=== PATIENT | female | born 1960 ===

== ENCOUNTER → 2018-12-30 10:48 | Outpatient (CLI) | payer OTHER, SELFPAY ==
[2018-12-30 12:15] LABS: BUN Creatinine Ratio 18.9 (6-22); Blood Urea Nitrogen 17 mg/dL (7-17); Calcium 9.4 mg/dL (8.4-10.2); Carbon Dioxide 29 mmol/L (22-32); Chloride 102 mmol/L (98-107); Estimated Glomerular Filt Rate > 60.0 mL/min (>60); Glucose 98 mg/dL (80-110); HEMOLYSIS < 15 (0-50); Potassium 3.6 mmol/L (3.4-5.1); Sodium 140 mmol/L (137-145)
== END ==
PROVIDERS: Visit Provider Student in an Organized Health Care Education/Training Program
DX: I10 Essential (primary) hypertension (principal)
CPT/HCPCS: 36415; 80048

== ENCOUNTER → 2019-04-24 15:11 | Outpatient (CLI) | payer OTHER, SELFPAY ==
--- NOTE | 2019-04-24 | DI.MG.S_ITS ---
BILATERAL DIGITAL SCREENING MAMMOGRAM 3D/2D WITH CAD: 04/24/2019 CLINICAL: Routine screening. Family history of breast cancer. Comparison is made to exams dated: 12/31/2016 mammogram, 11/23/2013 mammogram, 03/06/2011 mammogram, and 08/08/2008 mammogram - [facility]. The tissue of both breasts is heterogeneously dense. This may lower the sensitivity of mammography. Current study was also evaluated with a Computer Aided Detection (CAD) system. There are mole markers on both breasts. No significant masses, calcifications, or other findings are seen in either breast. There has been no significant interval change. IMPRESSION: NEGATIVE There is no mammographic evidence of malignancy. A 1 year screening mammogram is recommended. This exam was interpreted at Station ID: [id number]. NOTE: For mammograms, a report in lay terms will be sent to the patient. Approximately 15% of breast malignancies will not be visualized mammographically. In the management of a palpable breast mass, a negative mammogram must not discourage biopsy of a clinically suspicious lesion. Electronically Signed By: Lorenzo ryder/sofia:04/24/2019 18:33:26 letter sent: Normal Exam ACR BI-RADS Category 1: Negative 3341F
== END ==
PROVIDERS: PCP Family Medicine; Visit Provider Family Medicine
DX: Z12.31 Encounter for screening mammogram for malignant neoplasm of breast (principal); Z80.3 Family history of malignant neoplasm of breast
CPT/HCPCS: 77063; 77067

== ENCOUNTER → 2020-11-11 10:22 | Outpatient (CLI) | payer OTHER, SELFPAY ==
[2020-11-11 11:05] LABS: COVID19 -Nasal RAPID Negative (Negative)
== END ==
PROVIDERS: PCP Family Medicine; Visit Provider Specialist
DX: Z20.822 Contact with and (suspected) exposure to COVID-19 (principal)
CPT/HCPCS: 87635; C9803

== ENCOUNTER 2020-11-12 07:32 | Day surgery (SDC) | payer OTHER, SELFPAY ==
[2020-11-12] VITALS (8 sets, daily range): BP systolic 95–125; BP diastolic 43–69; PULSE 56–67; RESP 10–18; TEMP 36.2–36.7; O2SAT 92–98
--- NOTE | 2020-11-12 | PATH_ITS ---
[facility] Accession Number: [id number] . 01 Material submitted: . PART A: colon - 30CM COLON POLYP PART B: colon - 15CM COLON POLYP X2 PART C: anal canal - ANAL VERGE POLYP . 01 Clinical history: . SDC . 02 Diagnosis: A. Colon Polyp at 30 cm, Biopsy: Tubular adenoma. Additional step sections examined. . B. Colon Polyps at 15 cm, Biopsies: Fragments of tubular adenoma and fragments of hyperplastic polyp (two polyps removed). . C. Anal Verge Polyp, Biopsy: Tubular adenoma. MRV 11/15/2020 1038 Local . 02 Electronically signed: . Ernie Clay MD, PhD, Pathologist NPI- [id number] . 01 Gross description: . Part A: 30CM COLON POLYP: Received in formalin are multiple fragment(s) of velasquez, soft tissue measuring 0.1 x 0.1 x 0.1 cm to 0.4 x 0.3 x 0.2 cm submitted entirely in 1 cassette(s) Part B: 15CM COLON POLYP X2: Received in formalin are multiple fragment(s) of velasquez, soft tissue measuring 0.1 x 0.1 x 0.1 cm to 0.3 x 0.2 x 0.2 cm submitted entirely in 1 cassette(s) Part C: ANAL VERGE POLYP: Received in formalin is 1 fragment(s) of velasquez, soft tissue measuring 0.3 x 0.3 x 0.3 cm submitted entirely in 1 cassette(s) /JUSTIN 11/13/2020 0032 Local . 02 Pathologist provided ICD-10: D12.6, D12.8 . 02 CPT . 732595, 433109, [id number] Performed at: 01 [facility] [address] [id number] MD Daniele Manzano MD Phone: [phone] Performed at: 02 [facility] [address] [place] [id number] MD Shawna Bang MD Phone: [phone]
[2020-11-12] MEDS: LACTATED RINGERS 1,000 ML 200 ML IV (08:10)
--- NOTE | 2020-11-12 09:03 | PM.HP.1 ---
History of Present Illness History of Present Illness Date Patient Seen: 11/12/20 Time Patient Seen: 09:03 Chief complaint: SDC Narrative: The patient is a woman here for screening colonoscopy. Last exam was over 10 years ago. Patient History Medical History (Updated 11/12/20 @ 09:04 by Madhu Rankin MD) Essential hypertension (01/31/13) Essential tremor (09/24/14) No significant medical problems Surgical History Status post colonoscopy Family & Social History Family History Brother Heart disease Hypertension High cholesterol Father Diabetes mellitus Hypertension High cholesterol Mother Dementia Cancer Diabetes mellitus Hypertension High cholesterol Osteoporosis Sister Thyroid disease Social History: household members spouse Tobacco & Substance use: Smoking Status Former smoker alcohol intake never Substance Use Type does not use Meds Home Medications and Allergies Home Medications Medication Instructions Recorded Confirmed Type atorvastatin [Lipitor] 20 mg PO HS #90 tab 01/28/17 11/12/20 Rx cholecalciferol (vitamin D3) 2,000 unit PO QDAY #0 01/28/17 11/12/20 History [Vitamin D3] propranolol 80 mg tablet 80 mg PO BID #90 tab 02/07/19 11/12/20 Rx aspirin [Aspir-81] 81 mg PO DAILY 11/12/20 11/12/20 History hydrochlorothiazide 12.5 mg PO DAILY 11/12/20 11/12/20 History lisinopril 20 mg PO DAILY 11/12/20 11/12/20 History Allergies Allergy/AdvReac Type Severity Reaction Status Date / Time Sulfa (Sulfonamide Allergy Unknown Verified 11/12/20 08:12 Antibiotics) [SULFA (SULFONAMIDE ANTIBIOTICS)] Review of Systems Review of Systems Narrative: Wears glasses. Has arthritis and hypertension. Has essential tremor. Uses propanolol for her hypertension and essential tremor ROS: Yes All systems reviewed with the patient and are negative except as otherwise documented Exam Vital Signs (past 8 hours): - 11/12/20 07:54 Temperature 97.1 F L Pulse Rate 67 Respiratory Rate 18 Blood Pressure 125/66 Pulse Oximetry 98 Oxygen Delivery Method Room Air Narrative Exam Narrative: Pleasant cooperative patient no apparent distress. Lungs are clear to auscultation. No rales or rhonchi. Heart regular rate and rhythm no murmur gallop. Abdomen is soft nontender without mass. No obvious hernias. Patient is alert and oriented x3. Assessment & Plan Assessment & Plan narrative: The patient for a screening colonoscopy. I have discussed the procedure with them. Risks of bleeding, perforation which would necessitate major operation, failure to find remove all lesions, the potential tattoo were all discussed. All questions were answered. They wished to proceed.
[2020-11-12] MEDS: SCOPOLAMINE 1 PATCH TOP (09:05)
--- NOTE | 2020-11-12 09:05 | PM.PREOP ---
Pre-operative Note COVID-19 COVID-19 status: Negative Result date/Date tested (Pos, Neg/Pending): 11/11/20 Interval Note History & Physical reviewed/Exam performed by Physician: Yes Changes to H&P: No ASA Class (for procedural sedation): II
[2020-11-12] MEDS: ONDANSETRON 4 MG/2 ML INJ IV (09:06)
--- NOTE | 2020-11-12 09:10 | SUR.PREOP ---
Dr. Rankin made aware of pt's hx of post op nausea, medicated with scopalamine patch.
[2020-11-12] MEDS: fentaNYL 250 MCG/5 ML INJ IV (09:11)
[2020-11-12] MEDS: MIDAZOLAM 5 MG/5 ML VIAL IV (09:11)
--- NOTE | 2020-11-12 09:35 | PM.OP.ENDO ---
Operative Date/Time/Diagnoses Date of procedure: 11/12/20 Time of procedure: 09:35 Pre-op diagnosis: Screening examination. Last exam over 10 years ago. Post-op diagnosis: same (Small polyps. Pancolonic diverticulosis) Procedure & Clinicians Study performed: Colonoscopy with cold biopsy Same procedure as scheduled: Yes Indications: Screening Surgeon: Madhu Rankin Procedure Notes SCOAP/Timeout: Performed Procedure in detail: The patient was placed in the left lateral decubitus position and underwent IV sedation directed by the surgeon consisting of fentanyl and Versed. Digital exam was unremarkable. The scope was inserted and advanced through the rectum into the sigmoid, descending, transverse, and ascending colon. Patient was noted to have diverticulosis scattered through the colon.. The cecum was reached identified by the ileocecal valve and the appendiceal opening. . The scope was gradually brought out. A single polyp was found at 30 cm from the anal verge and this was biopsied and removed. Two polyps were found at 15 cm from the anal verge in these were biopsied and removed. Finally there was a small polyp near the anal verge which I biopsied and removed. The scope ultimately was retroflexed in the rectum. The appearance was normal except for some minor hemorrhoidal disease.. The scope was removed and the patient tolerated the procedure well. The prep was very good. Scope withdrawal time: 7 minutes(12 total) Sedation minutes: 22 Findings: diverticulosis (Pancolonic) and polyp (4small polyps) Specimen(s): other (Polyps) Complications: none Post-procedure Recommendations: Colonscopy in 5 years, High fiber diet and Start medication(s) (Metamucil) Follow up: as needed Disposition: PACU
--- NOTE | 2020-11-12 12:28 | SUR.PHASEII ---
Late entry: 1030 pt ready to go, attempted to get dressed, pt dressed started to dry heave and vomited, pt placed back in bed. Rested, 2nd attempt to get dressed pt did so w/o any nausea and vomiting. Pt eventually left unit in stable condition.
== END 2020-11-12 11:00 | disposition home or self-care (01) ==
PROVIDERS: PCP Family Medicine; Referring Provider Specialist; Visit Provider Specialist
PROC: 0DJD8ZZ Inspection of Lower Intestinal Tract, Via Natural or Artificial Opening Endoscopic (ICD-10-PCS; CPT 45378; principal; 2020-11-12 08:30)
DX: Z12.11 Encounter for screening for malignant neoplasm of colon (principal); I10 Essential (primary) hypertension; G25.0 Essential tremor; K57.30 Diverticulosis of large intestine without perforation or abscess without bleeding; D12.6 Benign neoplasm of colon, unspecified; D12.8 Benign neoplasm of rectum
CPT/HCPCS: 45380; 99152; J2250; J2405; J3010

== ENCOUNTER → 2022-09-09 10:19 | Outpatient (CLI) | payer OTHER, SELFPAY ==
--- NOTE | 2022-09-09 | DI.MG.S_ITS ---
BILATERAL DIGITAL SCREENING MAMMOGRAM 3D/2D WITH CAD: 09/09/2022 CLINICAL: Routine screening. Family history of breast cancer. Comparison is made to exams dated: 04/24/2019 mammogram, 12/31/2016 mammogram, and 11/23/2013 mammogram - [facility]. Both breasts are heterogeneously dense, which may obscure small masses (category c / 51-75% glandular tissue). Current study was also evaluated with a Computer Aided Detection (CAD) system. There are mole markers on both breasts. No significant masses, calcifications, or other findings are seen in either breast. There has been no significant interval change. IMPRESSION: NEGATIVE There is no mammographic evidence of malignancy. A 1 year screening mammogram is recommended. Based on the Tyrer Cuzick model (a risk assessment model) the patient's lifetime risk is 7.7% and her 10 year risk is 3.6%. According to the ACR, ACS, and NCCN guidelines, an annual breast MRI exam along with mammogram is recommended if the patient's lifetime risk is 20% or greater. This exam was interpreted at Station ID: [id number]. NOTE: For mammograms, a report in lay terms will be sent to the patient. Approximately 15% of breast malignancies will not be visualized mammographically. In the management of a palpable breast mass, a negative mammogram must not discourage biopsy of a clinically suspicious lesion. Electronically Signed By: Jaziel neal/sofia:09/09/2022 14:36:58 letter sent: Normal Exam ACR BI-RADS Category 1: Negative 3341F
== END ==
PROVIDERS: PCP Family Medicine; Referring Provider Family Medicine; Visit Provider Family Medicine
DX: Z12.31 Encounter for screening mammogram for malignant neoplasm of breast (principal); Z80.3 Family history of malignant neoplasm of breast
CPT/HCPCS: 77063; 77067

== ENCOUNTER → 2023-10-27 15:26 | Outpatient (CLI) | payer MEDICARE, OTHER, SELFPAY ==
--- NOTE | 2023-10-27 | DI.MG.S_ITS ---
BILATERAL DIGITAL SCREENING MAMMOGRAM 3D/2D WITH CAD: 10/27/2023 CLINICAL: Routine screening. Family history of breast cancer. Comparison is made to exams dated: 09/09/2022 mammogram, 04/24/2019 mammogram, and 12/31/2016 mammogram - [facility]. Both breasts are heterogeneously dense, which may obscure small masses (category c / 51-75% glandular tissue). Current study was also evaluated with a Computer Aided Detection (CAD) system. There are mole markers on both breasts. No significant masses, calcifications, or other findings are seen in either breast. There has been no significant interval change. IMPRESSION: BENIGN There is no mammographic evidence of malignancy. A 1 year screening mammogram is recommended. Based on the Tyrer Cuzick model (a risk assessment model) the patient's lifetime risk is 7.4% and her 10 year risk is 3.6%. According to the ACR, ACS, and NCCN guidelines, an annual breast MRI exam along with mammogram is recommended if the patient's lifetime risk is 20% or greater. This exam was interpreted at Station ID: [id number]. NOTE: For mammograms, a report in lay terms will be sent to the patient. Approximately 15% of breast malignancies will not be visualized mammographically. In the management of a palpable breast mass, a negative mammogram must not discourage biopsy of a clinically suspicious lesion. Electronically Signed By: Markel martinez/sofia:10/28/2023 16:19:31 letter sent: Normal Exam ACR BI-RADS Category 2: Benign Finding(s) 3342F
== END ==
PROVIDERS: PCP Student in an Organized Health Care Education/Training Program; Referring Provider Student in an Organized Health Care Education/Training Program; Visit Provider Student in an Organized Health Care Education/Training Program
DX: Z12.31 Encounter for screening mammogram for malignant neoplasm of breast (principal); Z80.3 Family history of malignant neoplasm of breast; R92.333 Mammographic heterogeneous density, bilateral breasts
CPT/HCPCS: 77063; 77067

== ENCOUNTER 2024-10-03 09:19 | Emergency (ER) | payer MEDICARE, OTHER, SELFPAY ==
[2024-10-03] VITALS (21 sets, daily range): BP systolic 118–153; BP diastolic 56–74; PULSE 59–76; RESP 14; TEMP 36.9; O2SAT 92–98; BMI 32.2
--- NOTE | 2024-10-03 09:36 | EKG_ITS ---
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
--- NOTE | 2024-10-03 09:36 | DI.CT.S_ITS ---
PROCEDURE: CT HEAD/BRAIN WO CON INDICATIONS: Confusion TECHNIQUE: Noncontrast 4.5 mm thick angled axial sections acquired from the foramen magnum to the vertex, with coronal and sagittal reformats. For radiation dose reduction, the following was used: automated exposure control, adjustment of mA and/or kV according to patient size. COMPARISON: None. FINDINGS: Image quality: Diagnostic. CSF spaces: Basal cisterns are patent. No extra-axial fluid collections. The ventricles are symmetric in size and shape. Brain: No intracranial bleeds or masses. There is cerebral volume loss for age, with resultant ventricular and sulcal prominence. There are periventricular and deep white matter chronic small vessel ischemic changes. There is intracranial internal carotid artery atherosclerosis. Skull and face: Calvarium and visualized facial bones appear intact, without suspicious lesions. Sinuses: Visualized sinuses and mastoids are clear. IMPRESSION: No acute intracranial pathology. Dictated by: Willy Rao M.D. on 10/03/2024 at 9:55 Approved by: Willy Rao M.D. on 10/03/2024 at 9:57
--- NOTE | 2024-10-03 09:36 | DI.MRI.S_ITS ---
PROCEDURE: MR HEAD/BRAIN WO CON INDICATIONS: Confusion TECHNIQUE: Non-contrast axial T1 spin echo, axial T2 fast spin echo, sagittal and axial FLAIR, coronal T2 fast spin echo, axial gradient echo, axial diffusion and ADC through the brain. COMPARISON: [facility], CT, CT HEAD/BRAIN WO CON, 10/03/2024, 9:40. FINDINGS: Image quality: Diagnostic. CSF spaces: Ventricles appear symmetric in size and shape. Basal cisterns are patent. No extra-axial fluid collections. Brain: No intracranial bleeds or mass effects. There is cerebral volume loss for age. There are periventricular and deep white matter chronic small vessel ischemic changes. Brainstem appears normal. Diffusion-weighted images show no acute infarct. No chronic ischemic insults. Normal intravascular flow voids are present. Skull and face: Calvarial bone marrow is normal in signal. Orbits are normal. Sinuses: Sinuses and mastoids are clear. IMPRESSION: MRI brain without acute intracranial abnormalities. No evidence for acute infarction. No evidence for mass or mass effect. Dictated by: Derek Zabala M.D. on 10/03/2024 at 15:23 Approved by: Derek Zabala M.D. on 10/03/2024 at 15:25
--- NOTE | 2024-10-03 09:38 | ED.NEUROSD ---
HPI - Neuro Symptoms/Deficit General Chief Complaint: Neuro Symptoms/Deficit Stated Complaint: memory loss t-1 Time Seen by Provider: 10/03/24 09:28 Source: patient Mode of arrival: Ambulatory History of Present Illness HPI Narrative: Patient here with . Complains of amnesia forgetfulness that occurred yesterday. Awoke this morning and symptoms have resolved. Last well known 9:30 a.m. yesterday. was with patient and he left for short while. He did return and through the course of day he had not noticed anything odd or different. However around 4:44 p.m. patient had asked about some items in the house which were placed 3 days ago and she thought was placed there recently. On further questioning of patient by , he noticed that she could not recall any events, any events of the day. Could not remember what she ate for breakfast which she did in the morning or afternoon. He drove her to the ER in 2 different places but they were too busy and they did not register in. During their travel patient kept on asking where they were going and where they were. Patient does not recall any of these events. They went to bed last night and patient started slowly improving with memory. She awoke this morning without any complaints and able to recall short and long-term events accept per yesterday's events. No prior history of heart attack strokes or diabetes. Denies any headache chest pain numbness tingling weakness. Fast exam is negative. t denies any drug or alcohol abuse. No fall or injury. No history of seizures. On Anticoagulants: No Related Data Home Medications Medication Instructions Recorded Confirmed cholecalciferol (vitamin D3) 50 2,000 unit PO QDAY ##0 01/28/17 11/12/20 mcg (2,000 unit) tablet (Vitamin D3) aspirin 81 mg tablet,delayed 81 mg PO DAILY 11/12/20 11/12/20 release hydrochlorothiazide 12.5 mg tablet 12.5 mg PO DAILY 11/12/20 11/12/20 lisinopril 20 mg tablet 20 mg PO DAILY 11/12/20 11/12/20 Previous Rx's Medication Instructions Recorded atorvastatin 20 mg tablet (Lipitor) 20 mg PO HS #90 tabs 01/28/17 propranolol 80 mg tablet 80 mg PO BID #90 tabs 02/07/19 Allergies Allergy/AdvReac Type Severity Reaction Status Date / Time Sulfa (Sulfonamide Allergy Unknown Verified 10/03/24 09:26 Antibiotics) [SULFA (SULFONAMIDE ANTIBIOTICS)] Review of Systems Review of Systems Narrative: GENERAL: Negative chills, fatigue, malaise, fever, sweats. HEENT: Negative sinus pain, ear pain, sore throat RESPIRATORY: Negative dyspnea, cough CARDIOVASCULAR: Negative chest pain, palpitations GASTROINTESTINAL: Negative nausea, vomiting, abdominal pain : Negative dysuria, frequency, hematuria MUSCULOSKELETAL: Negative muscle or bony pain SKIN: Negative rash, skin lesions NEUROLOGIC: Negative weakness, numbness, positive amnesia, negative headache negative seizure ROS Unobtainable: All systems reviewed & are unremarkable except as noted in HPI and below Hematologic/Lymphatic On Anticoagulants: No Patient History Medical History (Updated 10/03/24 @ 16:04 by Ziggy Bae MD) No significant medical problems Essential tremor (09/24/14) Essential hypertension (01/31/13) Surgical History Status post colonoscopy Family History Brother Heart disease Hypertension High cholesterol Father Diabetes mellitus Hypertension High cholesterol Mother Dementia Cancer Diabetes mellitus Hypertension High cholesterol Osteoporosis Sister Thyroid disease Social History household members: spouse Smoking Status: Former smoker alcohol intake: never Smoking Status: Former smoker alcohol intake frequency: other Exam Narrative Exam Narrative: GENERAL: in no distress, not toxic not dyspneic HEAD: Normocephalic. EYES: Pupils equal round ENT: Mucous membranes moist. NECK: Trachea midline. CARDIOVASCULAR: Regular rate and rhythm RESPIRATORY: Clear to auscultation. Breath sounds equal bilaterally. No wheezes, rales, or rhonchi. GASTROINTESTINAL: Abdomen soft, non-tender EXTREMITIES: No gross deformities. BACK: No flank tenderness. NEURO: AOx4. Fast exam is negative. 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 Negative pronator drift. [id number] intact lift each leg off bed without drift. Able to recall 3 items SKIN: Warm and dry PSYCH: Not anxious, is cooperative Initial Vital Signs Initial Vital Signs: Vital Signs Temperature 98.5 F 10/03/24 09:20 Pulse Rate 76 10/03/24 09:20 Respiratory Rate 14 10/03/24 09:20 Blood Pressure 138/64 10/03/24 09:20 Pulse Oximetry 97 10/03/24 09:20 Oxygen Delivery Method Room Air 10/03/24 09:20 Course Orders Ordered: ED Orders 10/03/24 09:30 Complete Blood Count AUTO DIFF Stat Comprehensive Metabolic Panel Stat Troponin & CK Cardiac Panel Stat 10/03/24 09:36 CT head/brain wo con Stat MR head/brain wo con Stat EKG-12 Lead Stat 10/03/24 09:37 EC echo doppler complete Stat 10/03/24 09:46 CT angio head and neck Stat 10/03/24 09:55 Urinalysis and Microscopic Stat Vital Signs Vital signs: Vital Signs - 8 hr 10/03/24 09:20 10/03/24 09:23 10/03/24 09:24 Temperature 98.5 F Pulse Rate 76 Respiratory Rate 14 Blood Pressure 138/64 138/64 Pulse Oximetry 97 92 Oxygen Delivery Method Room Air 10/03/24 09:24 10/03/24 09:30 10/03/24 09:31 Temperature Pulse Rate 73 70 Respiratory Rate Blood Pressure 149/74 H Pulse Oximetry 95 97 Oxygen Delivery Method 10/03/24 09:31 10/03/24 09:59 10/03/24 09:59 Temperature Pulse Rate 67 74 Respiratory Rate Blood Pressure 153/68 H Pulse Oximetry 97 96 Oxygen Delivery Method 10/03/24 10:00 10/03/24 10:00 10/03/24 10:30 Temperature Pulse Rate 72 Respiratory Rate Blood Pressure 149/66 H 141/64 H Pulse Oximetry 97 Oxygen Delivery Method 10/03/24 10:30 10/03/24 11:00 10/03/24 11:01 Temperature Pulse Rate 59 L 62 Respiratory Rate Blood Pressure 122/67 Pulse Oximetry 97 97 Oxygen Delivery Method 10/03/24 11:01 10/03/24 11:30 10/03/24 11:30 Temperature Pulse Rate 61 61 Respiratory Rate Blood Pressure 128/60 Pulse Oximetry 96 98 Oxygen Delivery Method 10/03/24 12:00 10/03/24 12:00 10/03/24 12:30 Temperature Pulse Rate 75 Respiratory Rate Blood Pressure 136/64 119/57 L Pulse Oximetry 96 Oxygen Delivery Method 10/03/24 12:30 10/03/24 13:00 10/03/24 13:01 Temperature Pulse Rate 71 66 66 Respiratory Rate Blood Pressure Pulse Oximetry 97 98 97 Oxygen Delivery Method 10/03/24 13:01 10/03/24 13:30 10/03/24 13:30 Temperature Pulse Rate 66 Respiratory Rate Blood Pressure 118/56 L 121/59 L Pulse Oximetry 96 Oxygen Delivery Method 10/03/24 14:02 10/03/24 15:17 10/03/24 15:18 Temperature Pulse Rate 67 64 Respiratory Rate Blood Pressure 132/62 Pulse Oximetry 98 96 Oxygen Delivery Method 10/03/24 15:18 10/03/24 15:30 10/03/24 15:30 Temperature Pulse Rate 64 69 Respiratory Rate Blood Pressure 122/64 Pulse Oximetry 95 96 Oxygen Delivery Method MDM - Neuro Symptoms/Deficit Lab Data 10/03/24 09:30 10/03/24 09:30 Labs: Lab Results 10/03/24 10/03/24 Range/Units 09:30 09:55 WBC 8.4 (4.5-11.0) X10^3/uL RBC 4.82 (4.0-5.2) X10^6/uL Hgb 15.1 (12.0-16.0) g/dL Hct 45.1 (36-46) % MCV 93.4 (80-100) fL MCH 31.2 (26-34) PG MCHC 33.4 (30-36) % RDW 13.1 (11.6-14.8) % Plt Count 287 (150-400) X10^3/uL Neut % (Auto) 62.7 (50-75) % Lymph % (Auto) 24.3 L (25-40) % [place] % (Auto) 7.1 (3-14) % Eos % (Auto) 4.9 H (2-4) % Baso % (Auto) 1.0 (0-2) % Neut # (Auto) 5300 (5104-2379) /uL Lymph # (Auto) 2000 (0368-8016) /uL [place] # (Auto) 600 (0-900) /uL Eos # (Auto) 400 (0-450) /uL Baso # (Auto) 100 (0-100) /uL Sodium 137 (137-145) mmol/L Potassium 3.5 (3.4-5.1) mmol/L Chloride 107 (98-107) mmol/L Carbon Dioxide 26 (22-32) mmol/L BUN 24 H (7-17) mg/dL Creatinine 0.99 (0.52-1.04) mg/dL Estimated GFR > 60 (>60) mL/min BUN/Creatinine Ratio 24.2 H (6-22) Glucose 116 H (80-110) mg/dL Calcium 9.7 (8.4-10.2) mg/dL Total Bilirubin 0.9 (0.2-1.3) mg/dL AST 34 (14-36) IU/L ALT 38 H (<35) IU/L Alkaline Phosphatase 62 (38-126) U/L Total Creatine Kinase 64 (30-135) U/L Troponin I < 0.012 (0.01-0.034) ng/mL Total Protein 7.5 (6.3-8.2) g/dL Albumin 4.3 (3.5-5.0) g/dL Globulin 3.2 (1.7-4.1) g/dL Albumin/Globulin Ratio 1.3 (1.0-2.8) Urine Color Yellow Urine Appearance Clear Urine pH 5.0 (4.5-8.0) Ur Specific [place] >=1.030 H (1.000-1.035) Urine Protein Negative (Negative) Urine Glucose (UA) Negative (Negative) g/dL Urine Ketones Negative (NEGATIVE) Urine Occult Blood Negative (Negative) Urine Nitrate Negative (Negative) Urine Bilirubin Negative (NEGATIVE) Urine Urobilinogen 0.2 (0.2) E.U./dL Ur Leukocyte Esterase Negative (NEGATIVE) Urine RBC None seen (0-5/HPF) Urine WBC 0-1/hpf (0-5/HPF) Ur Squamous Epith Cells 0-1 /hpf (0-5/HPF) Urine Bacteria None seen (None) Ur Culture Indicated? Cult not indicated Vol Urine Centrifuged 10ml (spun) Imaging Data CT scan - head: Radiologist's Impression: [address] [address] [address] Scan Report Signed Patient: Blanca Boyd MR#: [id number] : 1960 Acct:[id number] Age/Sex: 64 / F Date of Service: 10/03/24 Loc: ED Accession Number: [id number] Procedure: CT head/brain wo con Ordering Provider: Ziggy Bae MD PROCEDURE: CT HEAD/BRAIN WO CON INDICATIONS: Confusion TECHNIQUE: Noncontrast 4.5 mm thick angled axial sections acquired from the foramen magnum to the vertex, with coronal and sagittal reformats. For radiation dose reduction, the following was used: automated exposure control, adjustment of mA and/or kV according to patient size. COMPARISON: None. FINDINGS: Image quality: Diagnostic. CSF spaces: Basal cisterns are patent. No extra-axial fluid collections. The ventricles are symmetric in size and shape. Brain: No intracranial bleeds or masses. There is cerebral volume loss for age, with resultant ventricular and sulcal prominence. There are periventricular and deep white matter chronic small vessel ischemic changes. There is intracranial internal carotid artery atherosclerosis. Skull and face: Calvarium and visualized facial bones appear intact, without suspicious lesions. Sinuses: Visualized sinuses and mastoids are clear. IMPRESSION: No acute intracranial pathology. Dictated by: Willy Rao M.D. on 10/03/2024 at 9:55 Approved by: Willy Rao M.D. on 10/03/2024 at 9:57 CTA - brain/neck: Radiologist's Impression: [place] [address] CT Scan Report Signed Patient: Blanca Boyd MR#: [id number] : 1960 Acct:[id number] Age/Sex: 64 / F Date of Service: 10/03/24 Loc: ED Accession Number: [id number] Procedure: CT angio head and neck Ordering Provider: Ziggy Bae MD PROCEDURE: CT ANGIO HEAD AND NECK INDICATIONS: Confusion TECHNIQUE: After the administration of intravenous contrast, 1 mm thick sections acquired from the aortic arch through the [place] of [place]. 3-dimensional jovvrtp-fjksxsukv-evjmuqahod (MIP) and/or volume rendering reformats were acquired of the central intracranial vasculature and neck separately. For radiation dose reduction, the following was used: automated exposure control, adjustment of mA and/or kV according to patient size. COMPARISON: None. FINDINGS: Image quality: Diagnostic. BRAIN: Please refer to same day CT of the head HEAD CT ANGIOGRAPHY: Anterior circulation: Intracranial internal carotid arteries demonstrate atherosclerotic vascular calcifications. Area of dhwe-nc-pjfzifop stenosis in the left terminal ICA segment. Otherwise, the ICAs appear patent.. The flow within the paired anterior cerebral arteries is normal and symmetric. The flow within the middle cerebral arteries is normal and symmetric. The anterior communicating artery is seen. No aneurysms are seen. Posterior circulation: Right vertebral artery is dominant and forms the normal basilar artery. Flow within the posterior cerebral arteries is normal and symmetric. No aneurysms are seen. NECK CT ANGIOGRAPHY: Carotid system: The great vessels demonstrate a conventional anatomy as they arise from the aortic arch. The origins of the common carotid arteries appear patent. The common carotid arteries demonstrate normal caliber and courses. The bifurcation regions demonstrate atherosclerotic calcifications with moderate stenosis on the left, approximately 50 percent. No stenosis on the right. The ICAs are otherwise patent and normal in caliber.. Posterior circulation: The origins of the vertebral arteries both appear widely patent. The more superior extracranial portions of both vertebral arteries also demonstrate normal courses and calibers. Right vertebral artery is dominant and forms the basilar artery. Left vertebral artery terminates into PICA.. Soft tissues: Large right thyroid nodule measuring 4.3 centimeters. There is posterior extension of the right thyroid lobe extending into the mediastinum (2/278). Visualized neck soft tissues demonstrate no suspicious abnormalities. Bones: No suspicious bony lesions. Multilevel degenerative changes of the spine. Visualized cervical spine appears normally aligned. IMPRESSION: No significant intracranial arterial abnormality is seen. Approximately 50 percent stenosis of the proximal left ICA. Otherwise, no significant abnormality is seen within the arteries of the neck. Large right thyroid lobe nodule measuring 4.3 centimeters. Posterior extension of the right thyroid lobe extending into the mediastinum. Recommend nonurgent thyroid ultrasound for further evaluation. Any quantitative measurements of stenosis were performed using NASCET criteria. Dictated by: Willy Rao M.D. on 10/03/2024 at 10:05 Approved by: Willy Rao M.D. on 10/03/2024 at 10:18 Echocardiogram: Radiologist's Impression: [address] [address] Echocardiography Report Signed Patient: Blanca Boyd MR#: [id number] : 1960 Acct:[id number] Age/Sex: 64 / F Date of Service: 10/03/24 Loc: ED Accession Number: [id number] Procedure: EC echo doppler complete Ordering Provider: Ziggy Bae MD [facility] : : [id number] : : [id number] : : Phone: [phone] Echocardiogram Report + + :Name: BLANCA BOYD Study Date: 10/03/2024 Height: 60 in : :[facility] ReadingLocation: Weight: 165 lb : : Gender: Female BSA: 1.7 m2 : :: 1960 Age: 64 yrs BP: 149/66 mmHg: :Reason For Study: TIA : :Ordering Physician: CATALINO, : :ZIGGY Performed By: Francheska Olivera : :Referring: ZIGGY BAE : + + Interpretation Summary The ejection fraction is estimated to be 60-65%. There is mild aortic regurgitation. This is unchanged compared to the previous study. There is no Doppler evidence for an interatrial shunt. Injection of contrast documented no interatrial shunt. Procedure: A two-dimensional transthoracic echocardiogram with color flow and Doppler was performed. The study quality was technically adequate. Comparison is made with the echocardiogram of 04/15/2023. A saline contrast injection was performed to assess for cardiac shunting. The patient was in sinus bradycardia with heart rates between 56-64 bpm during the exam. Left Ventricle: The left ventricle is normal in size and wall thickness. The ejection fraction is estimated to be 60-65%. There has been no significant change since the previous exam. Left ventricular wall motion is normal. Right Ventricle: The right ventricle is normal in size and function. Atria: The left atrial size is normal. Right atrial size is normal. There is no Doppler evidence for an interatrial shunt. Injection of contrast documented no interatrial shunt. Mitral Valve: The mitral valve leaflets appear to open well. There is mild mitral regurgitation. Aortic Valve: The aortic valve is trileaflet. The aortic valve opens well. There is no aortic valve stenosis. There is mild aortic regurgitation. This is unchanged compared to the previous study. Tricuspid Valve: The tricuspid valve leaflets are thin and pliable. Pulmonary artery pressures cannot be estimated because of the lack of a measurable TR jet velocity. There is trace tricuspid regurgitation. Pulmonic Valve: The pulmonic valve leaflets are thin and pliable; valve motion is normal. There is mild pulmonic regurgitation. Great Vessels: The aortic root is normal size. The dimensions of the ascending aorta are normal. The IVC is of normal diameter and collapses greater than 50% with a sniff. This suggests a low right atrial pressure of 3 mm Hg. Pericardium/ Pleura There is no pericardial effusion. There is no pleural effusion. MMode/2D Measurements & Calculations LVIDd: 4.7 cm LVOT diam: 2.0 cm LVIDs: 2.8 cm Ao root diam: 3.1 cm FS: 39.6 % asc Aorta Diam: 3.2 cm IVSd: 0.70 cm LVPWd: 0.72 cm LV simon. diameter/BSA (cm/m^2): 2.7 LV sys. diameter/BSA (cm/m^2): 1.6 LA A2 area: 17.2 cm2 RA long axis: 4.3 cm LA A4 area: 13.3 cm2 RA area: 11.5 cm2 LA length (vol): 4.6 cm RA vol: 26.3 ml LA vol: 42.2 ml RA : 15.3 ml/m2 LA vol index: 24.5 ml/m2 IVC diam: 1.8 cm RVD1 (basal): 3.3 cm RVD2 (mid): 2.7 cm TAPSE: 2.3 cm Doppler Measurements & Calculations Ao V2 max: 128.5 cm/sec LVOT Max Jules: 79.1 cm/sec Ao V2 mean: 90.1 cm/sec LV V1 max P.5 mmHg Ao max P.6 mmHg LV V1 VTI: 19.5 cm Ao mean P.7 mmHg JEANETTE(I,D): 2.1 cm2 Ao V2 VTI: 29.5 cm JEANETTE(V,D): 2.0 cm2 sev ratio: 0.66 JEANETTE indexed to BSA (cm^2/m^2): 1.2 AI P1/2t: 1062 msec AI dec slope: 114.2 cm/sec2 MV E max jules: 51.1 cm/sec PA V2 max: 82.5 cm/sec MV A max jules: 62.1 cm/sec PA V2 mean: 53.5 cm/sec MV E/A: 0.82 PA mean P.3 mmHg Med Peak E' Jules: 7.3 cm/sec PA pr(Accel): 37.9 mmHg E/E' med: 7.0 Lat Peak E' Jules: 8.6 cm/sec E/E' lat: 5.9 E/e' average: 6.5 MV dec time: 0.22 sec SV(LVOT): 62.5 ml Reading Physician:01:08 PM MRI brain: Radiologist's Impression: [place] [address] Magnetic Resonance Report Signed Patient: Blanca Boyd MR#: [id number] : 1960 Acct:[id number] Age/Sex: 64 / F Date of Service: 10/03/24 Loc: ED Accession Number: [id number] Procedure: MR head/brain wo con Ordering Provider: Ziggy Bae MD PROCEDURE: MR HEAD/BRAIN WO CON INDICATIONS: Confusion TECHNIQUE: Non-contrast axial T1 spin echo, axial T2 fast spin echo, sagittal and axial FLAIR, coronal T2 fast spin echo, axial gradient echo, axial diffusion and ADC through the brain. COMPARISON: [facility], CT, CT HEAD/BRAIN WO CON, 10/03/2024, 9:40. FINDINGS: Image quality: Diagnostic. CSF spaces: Ventricles appear symmetric in size and shape. Basal cisterns are patent. No extra-axial fluid collections. Brain: No intracranial bleeds or mass effects. There is cerebral volume loss for age. There are periventricular and deep white matter chronic small vessel ischemic changes. Brainstem appears normal. Diffusion-weighted images show no acute infarct. No chronic ischemic insults. Normal intravascular flow voids are present. Skull and face: Calvarial bone marrow is normal in signal. Orbits are normal. Sinuses: Sinuses and mastoids are clear. IMPRESSION: MRI brain without acute intracranial abnormalities. No evidence for acute infarction. No evidence for mass or mass effect. Dictated by: Derek Zabala M.D. on 10/03/2024 at 15:23 Approved by: Derek Zabala M.D. on 10/03/2024 at 15:25 [facility] Narrative Medical decision making narrative: Patient here with . Complains of amnesia forgetfulness that occurred yesterday. Awoke this morning and symptoms have resolved. Last well known 9:30 a.m. yesterday. was with patient and he left for short while. He did return and through the course of day he had not noticed anything odd or different. However around 4:44 p.m. patient had asked about some items in the house which were placed 3 days ago and she thought was placed there recently. On further questioning of patient by , he noticed that she could not recall any events, any events of the day. Could not remember what she ate for breakfast which she did in the morning or afternoon. He drove her to the ER in 2 different places but they were too busy and they did not register in. During their travel patient kept on asking where they were going and where they were. Patient does not recall any of these events. They went to bed last night and patient started slowly improving with memory. She awoke this morning without any complaints and able to recall short and long-term events accept per yesterday's events. No prior history of heart attack strokes or diabetes. Denies any headache chest pain numbness tingling weakness. Fast exam is negative. Patient denies any drug or alcohol abuse. No fall or injury. No history of seizures. After history and exam CT head CT angiogram head and neck MRI brain EKG CBC CMP urinalysis [facility] Medical records reviewed: No recent visit for this complaint Differential considered: Includes but not limited to TIA stroke transient global amnesia, stress Lab Test results independently reviewed as above. Pertinent findings: WBC 8.4 hemoglobin 15.1 AST 34 ALT 38 troponin less than 0.012 urinalysis negative nitrate negative leukocyte esterase Independently reviewed EKG normal sinus rhythm rate 63 Imaging studies independently reviewed: CT head CT angiogram head neck no acute finding, MRI brain no acute finding Consultations: 11:00 a.m.. Spoke with [facility] neurology Dr. Isaacs, she has reviewed imaging and clinical presentation and feels this is more transient global amnesia. Patient to follow up with primary care regarding her blood pressure and cholesterol. Continue home medications. No need to pursue CT angiogram findings. Treatments: None indicated at this time. Re-evaluations: 4:05 p.m.. Updated patient and results. They are reassuring. Likely transient global amnesia. No events occurring here today. Return precautions reviewed. They desire discharge home. Discussion: Appropriate for discharge home. Exam is reassuring. MRI CT scan neurology consult reassuring. No events during course of stay. Return precautions reviewed. Patient is already on blood pressure medication cholesterol medication and baby aspirin. They desire discharge home. Diagnosis: Transient global amnesia Discharge Plan Departure Patient Disposition: Home Clinical Impression: TGA (transient global amnesia) Instructions: DI for Transient Global Amnesia Activity Restrictions/Additional Instructions: Your exam and laboratory studies imaging studies and MRI are reassuring. Neurology service was consulted. You likely had transient global amnesia. Has no stroke was seen on your studies. Please continue home medications and take daily baby aspirin 81 mg. See your family doctor within a week for re-evaluation. Return if worse if any questions or concerns. Continue your blood pressure medication and cholesterol medications. Prescriptions: No Action cholecalciferol (vitamin D3) [Vitamin D3] 2,000 UNIT tablet 2,000 unit PO QDAY Qty: 0 atorvastatin [Lipitor] 20 MG tablet 20 mg PO HS Qty: 90 3RF propranolol 80 mg tablet 80 mg PO BID Qty: 90 0RF Rx Instructions: Pt yet to est care with a new PCP. #90 given. Please call clinic to schedule appt... 12/26/18 lisinopril 20 mg tablet 20 mg PO DAILY hydrochlorothiazide 12.5 mg tablet 12.5 mg PO DAILY aspirin 81 mg Tablet,Delayed Release (Dr/Ec) 81 mg PO DAILY Referrals: Kyara Guillory DO [Primary Care Provider] - Stand Alone Forms: Patient Portal/API/Survey
[2024-10-03 09:42] LABS: Add Manual Diff / Slide Review NO; Basophils Absolute Auto 100 /uL (0-100); Eosinophils Absolute Auto 400 /uL (0-450); Eosinophils Percent Auto 4.9 % (2-4); Hematocrit 45.1 % (36-46); Hemoglobin 15.1 g/dL (12.0-16.0); Lymphocytes Absolute Auto 2000 /uL (1100-4500); Lymphocytes Percent Auto 24.3 % (25-40); Mean Corpuscular HGB Conc 33.4 % (30-36); Mean Corpuscular Hemoglobin 31.2 PG (26-34); Mean Corpuscular Volume 93.4 fL (80-100); Monocytes Absolute Auto 600 /uL (0-900); Monocytes Percent Auto 7.1 % (3-14); Neutrophils Absolute Auto 5300 /uL (1500-7000); Neutrophils Percent Auto 62.7 % (50-75); Platelet Count 287 X10^3/uL (150-400); Red Blood Cell Count 4.82 X10^6/uL (4.0-5.2); Red Cell Distribution Width 13.1 % (11.6-14.8); White Blood Cell Count 8.4 X10^3/uL (4.5-11.0)
--- NOTE | 2024-10-03 09:46 | DI.CT.S_ITS ---
PROCEDURE: CT ANGIO HEAD AND NECK INDICATIONS: Confusion TECHNIQUE: After the administration of intravenous contrast, 1 mm thick sections acquired from the aortic arch through the [place] of [place]. 3-dimensional cftixnj-pclcdfnxe-zsawlnvzff (MIP) and/or volume rendering reformats were acquired of the central intracranial vasculature and neck separately. For radiation dose reduction, the following was used: automated exposure control, adjustment of mA and/or kV according to patient size. COMPARISON: None. FINDINGS: Image quality: Diagnostic. BRAIN: Please refer to same day CT of the head HEAD CT ANGIOGRAPHY: Anterior circulation: Intracranial internal carotid arteries demonstrate atherosclerotic vascular calcifications. Area of [id number] stenosis in the left terminal ICA segment. Otherwise, the ICAs appear patent.. The flow within the paired anterior cerebral arteries is normal and symmetric. The flow within the middle cerebral arteries is normal and symmetric. The anterior communicating artery is seen. No aneurysms are seen. Posterior circulation: Right vertebral artery is dominant and forms the normal basilar artery. Flow within the posterior cerebral arteries is normal and symmetric. No aneurysms are seen. NECK CT ANGIOGRAPHY: Carotid system: The great vessels demonstrate a conventional anatomy as they arise from the aortic arch. The origins of the common carotid arteries appear patent. The common carotid arteries demonstrate normal caliber and courses. The bifurcation regions demonstrate atherosclerotic calcifications with moderate stenosis on the left, approximately 50 percent. No stenosis on the right. The ICAs are otherwise patent and normal in caliber.. Posterior circulation: The origins of the vertebral arteries both appear widely patent. The more superior extracranial portions of both vertebral arteries also demonstrate normal courses and calibers. Right vertebral artery is dominant and forms the basilar artery. Left vertebral artery terminates into PICA.. Soft tissues: Large right thyroid nodule measuring 4.3 centimeters. There is posterior extension of the right thyroid lobe extending into the mediastinum (2/278). Visualized neck soft tissues demonstrate no suspicious abnormalities. Bones: No suspicious bony lesions. Multilevel degenerative changes of the spine. Visualized cervical spine appears normally aligned. IMPRESSION: No significant intracranial arterial abnormality is seen. Approximately 50 percent stenosis of the proximal left ICA. Otherwise, no significant abnormality is seen within the arteries of the neck. Large right thyroid lobe nodule measuring 4.3 centimeters. Posterior extension of the right thyroid lobe extending into the mediastinum. Recommend nonurgent thyroid ultrasound for further evaluation. Any quantitative measurements of stenosis were performed using NASCET criteria. Dictated by: Willy Rao M.D. on 10/03/2024 at 10:05 Approved by: Willy Rao M.D. on 10/03/2024 at 10:18
[2024-10-03 09:54] LABS: Alanine Aminotransferase 38 IU/L (<35); Albumin 4.3 g/dL (3.5-5.0); Albumin Globulin Ratio 1.3 (1.0-2.8); Alkaline Phosphatase 62 U/L (38-126); Aspartate Aminotransferase 34 IU/L (14-36); BUN Creatinine Ratio 24.2 (6-22); Bilirubin Total 0.9 mg/dL (0.2-1.3); Blood Urea Nitrogen 24 mg/dL (7-17); Calcium 9.7 mg/dL (8.4-10.2); Carbon Dioxide 26 mmol/L (22-32); Chloride 107 mmol/L (98-107); Creatine Kinase 64 U/L (30-135); Estimated Glomerular Filt Rate > 60 mL/min (>60); Globulin 3.2 g/dL (1.7-4.1); Glucose 116 mg/dL (80-110); HEMOLYSIS < 15 (0-50); Potassium 3.5 mmol/L (3.4-5.1); Sodium 137 mmol/L (137-145); Total Protein 7.5 g/dL (6.3-8.2)
[2024-10-03 10:05] LABS: Troponin I < 0.012 ng/mL (0.01-0.034)
[2024-10-03 10:11] LABS: Appearance Urine UA CLEAR; Bilirubin Urine UA NEGATIVE (NEGATIVE); Color Urine UA YELLOW; Glucose Urine UA NEGATIVE (Negative); Ketones Urine UA NEGATIVE (NEGATIVE); Leukocyte Esterase Urine UA NEGATIVE (NEGATIVE); Nitrite Urine UA NEGATIVE (Negative); Occult Blood Urine UA NEGATIVE (Negative); Protein Urine UA NEGATIVE (Negative); Specific Gravity Urine UA >=1.030 (1.000-1.035); Urobilinogen Urine UA 0.2 E.U./dL (0.2)
[2024-10-03 10:45] LABS: Urine Volume 10mL (spun)
[2024-10-03 10:46] LABS: Bacteria Urine None Seen; Culture Indicated Urine Cult Not Indicated; RBC Urine None Seen (0-5/HPF); Squamous Epithelial Cell Urine 0-1 /HPF (0-5/HPF); WBC Urine 0-1/HPF (0-5/HPF)
--- NOTE | 2024-10-03 11:00 | PC.NURSE ---
Telestroke @ called at 1053. Images pushed and face sheet faxed at 1050. Spoke with Lucien at the transfer center and passed off to .
== END 2024-10-03 16:11 | disposition home or self-care (01) ==
PROVIDERS: Emergency Provider Emergency Medicine; PCP Student in an Organized Health Care Education/Training Program
DX: G45.4 Transient global amnesia (principal)
CPT/HCPCS: 70450; 70496; 70498; 70551; 80053; 81001; 82550; 84484; 85025; 93005; 93010; 93306; 99284; Q9967

== ENCOUNTER 2024-11-28 16:46 | Emergency (ER) | payer MEDICARE, OTHER, SELFPAY ==
[2024-11-28 16:51] VITALS: BP 150/72; PULSE 66; RESP 16; TEMP 36.4; O2SAT 98; BMI 32.2
--- NOTE | 2024-11-28 16:56 | EKG_ITS ---
[address] [address] Test Date: 2024-11-28 Pat Name: Blanca Shaffer Department: [facility] Room: Gender: Female [employer] Tender: : 1960 Requested By: Order Number: [id number] Reading MD: Hollis Rm Measurements Intervals [place] Rate: 60 P: -27 PA: 124 QRS: -6 QRSD: 80 T: -20 QT: 444 QTc: 444 Interpretive Statements Normal sinus rhythm Inferior infarct , age undetermined Electronically Signed On 11-28-2024 18:29:34 PST by Hollis Rm
--- NOTE | 2024-11-28 16:56 | DI.RAD.S_ITS ---
PROCEDURE: XR CHEST 1V INDICATIONS: chest pain TECHNIQUE: One view of the chest was acquired. COMPARISON: None. FINDINGS: Surgical changes and devices: None. Lungs and pleura: Lungs are clear. No pleural effusions or pneumothorax. Mediastinum: Mediastinal contours appear normal. Heart size is normal. Bones and chest wall: No suspicious bony lesions. Overlying soft tissues appear unremarkable. IMPRESSION: No acute cardiopulmonary abnormality is seen. Dictated by: Willy Rao M.D. on 11/28/2024 at 18:54 Approved by: Willy Rao M.D. on 11/28/2024 at 18:57
[2024-11-28 17:09] LABS: Add Manual Diff / Slide Review NO; Basophils Absolute Auto 100 /uL (0-100); Basophils Percent Auto 0.8 % (0-2); Eosinophils Absolute Auto 100 /uL (0-450); Eosinophils Percent Auto 1.3 % (2-4); Hematocrit 46.2 % (36-46); Hemoglobin 15.6 g/dL (12.0-16.0); Lymphocytes Absolute Auto 1900 /uL (1100-4500); Lymphocytes Percent Auto 21.5 % (25-40); Mean Corpuscular HGB Conc 33.7 % (30-36); Mean Corpuscular Hemoglobin 31.3 PG (26-34); Mean Corpuscular Volume 92.9 fL (80-100); Monocytes Absolute Auto 400 /uL (0-900); Monocytes Percent Auto 4.5 % (3-14); Neutrophils Absolute Auto 6200 /uL (1500-7000); Neutrophils Percent Auto 71.9 % (50-75); Platelet Count 304 X10^3/uL (150-400); Red Blood Cell Count 4.97 X10^6/uL (4.0-5.2); Red Cell Distribution Width 12.9 % (11.6-14.8); White Blood Cell Count 8.7 X10^3/uL (4.5-11.0)
[2024-11-28 17:17] LABS: Prothrombin Time 10.8 SECONDS (9.4-12.5)
[2024-11-28 17:20] LABS: PTT Partial Thromboplastin Tim 31 SECONDS (25.1-36.5)
[2024-11-28 17:21] LABS: Alanine Aminotransferase 38 IU/L (<35); Albumin 4.5 g/dL (3.5-5.0); Albumin Globulin Ratio 1.3 (1.0-2.8); Alkaline Phosphatase 49 U/L (38-126); Aspartate Aminotransferase 50 IU/L (14-36); BUN Creatinine Ratio 15.5 (6-22); Bilirubin Total 1.6 mg/dL (0.2-1.3); Blood Urea Nitrogen 13 mg/dL (7-17); Calcium 9.1 mg/dL (8.4-10.2); Carbon Dioxide 25 mmol/L (22-32); Chloride 105 mmol/L (98-107); Creatine Kinase 110 U/L (30-135); Estimated Glomerular Filt Rate > 60 mL/min (>60); Globulin 3.4 g/dL (1.7-4.1); Glucose 111 mg/dL (80-110); Lipase 58 U/L (23-300); Magnesium 2.1 mg/dL (1.6-2.3); Sodium 137 mmol/L (137-145); Total Protein 7.9 g/dL (6.3-8.2)
[2024-11-28 17:22] LABS: HEMOLYSIS 167 (0-50)
[2024-11-28 17:23] LABS: Potassium 4.6 mmol/L (3.4-5.1)
[2024-11-28 17:33] LABS: NT-proBNP (BNP-Adult 18+) 132 pg/mL (<125); Troponin I 0.015 ng/mL (0.01-0.034)
[2024-11-28 18:49] VITALS: PULSE 65; O2SAT 98
[2024-11-28 18:51] VITALS: BP 133/78; PULSE 63; RESP 47; O2SAT 98
[2024-11-28 19:00] VITALS: BP 129/73; PULSE 62; RESP 13; O2SAT 99
--- NOTE | 2024-11-28 19:08 | ED.DIZZY ---
HPI - Dizziness General Chief Complaint: Dizziness Stated Complaint: dizzy, weakness, n/v Time Seen by Provider: 11/28/24 19:08 History of Present Illness HPI Narrative: Patient 64-year-old female history of hypertension essential tremor presenting today with dizziness. She reports her lisinopril dose was increased about a week ago. This morning she woke up felt something in her knee when she accidentally felt something go on in her head. She feels like the room is spinning she is extremely nauseous does not thrown up she has no weakness. No prior history of vertigo. She was actually seen evaluated here 10/03/2024 in the ED. She would full workup including echo MRI CT angio ultimately diagnosed with transient global amnesia and discharged home. She denies any recent illness. Related Data Home Medications Medication Instructions Recorded Confirmed cholecalciferol (vitamin D3) 50 2,000 unit PO QDAY ##0 01/28/17 11/12/20 mcg (2,000 unit) tablet (Vitamin D3) aspirin 81 mg tablet,delayed 81 mg PO DAILY 11/12/20 11/12/20 release hydrochlorothiazide 12.5 mg tablet 12.5 mg PO DAILY 11/12/20 11/12/20 lisinopril 20 mg tablet 20 mg PO DAILY 11/12/20 11/12/20 Previous Rx's Medication Instructions Recorded atorvastatin 20 mg tablet (Lipitor) 20 mg PO HS #90 tabs 01/28/17 propranolol 80 mg tablet 80 mg PO BID #90 tabs 02/07/19 meclizine 25 mg tablet 25 mg PO TID PRN dizziness #10 tabs 11/28/24 ondansetron 4 mg disintegrating 4 mg PO Q8H PRN nausea and 11/28/24 tablet vomiting #10 tabs Allergies Allergy/AdvReac Type Severity Reaction Status Date / Time Sulfa (Sulfonamide Allergy Unknown Verified 10/03/24 09:26 Antibiotics) [SULFA (SULFONAMIDE ANTIBIOTICS)] Patient History Medical History No significant medical problems Essential tremor (09/24/14) Essential hypertension (01/31/13) Surgical History Status post colonoscopy Family History Brother Heart disease Hypertension High cholesterol Father Diabetes mellitus Hypertension High cholesterol Mother Dementia Cancer Diabetes mellitus Hypertension High cholesterol Osteoporosis Sister Thyroid disease Social History household members: spouse Smoking Status: Former smoker alcohol intake: never Smoking Status: Former smoker alcohol intake frequency: other Exam Initial Vital Signs Initial Vital Signs: Vital Signs Temperature 97.6 F 11/28/24 16:51 Pulse Rate 66 11/28/24 16:51 Respiratory Rate 16 11/28/24 16:51 Blood Pressure 150/72 H 11/28/24 16:51 Pulse Oximetry 98 11/28/24 16:51 Oxygen Delivery Method Room Air 11/28/24 16:51 GENERAL: Alert 64-year-old female HEENT: Head atraumatic,EOMI, pupils reactive, no nystagmus face symmetric, [moist] mucous membranes CARDIOVASCULAR: Regular rate and rhythm without murmurs, rubs or gallops. RESPIRATORY: Breath sounds equal bilaterally, no wheezes rales or rhonchi. ABDOMEN: Soft, nontender. Normoactive bowel sounds all 4 quadrants. No guarding or rebound. EXTREMITIES: Normal range of motion, no clubbing or edema. Neurovascularly intact NEUROLOGICAL: Alert and oriented x4.Normal gait and speech. Cranial nerves II through XII grossly intact. Essential tremor noted maneuver maneuver Ruthann maneuver [Good ivsncb-lf-snne, good qsad-rh-upei, strength equal bilaterally, no dysarthria or aphasia, sensation in tact to soft touch bilaterally, no visual changes, no facial droop] SKIN: Warm, dry, no laceration, no petechiae, no rashes or lesions. Course Orders Ordered: ED Orders 11/28/24 16:56 XR chest 1V Stat EKG-12 Lead Stat 11/28/24 17:03 Complete Blood Count AUTO DIFF Stat Comprehensive Metabolic Panel Stat Lipase Stat Magnesium Stat NT-proBNP (BNP-Adult 18+) Stat PTT Partial Thromboplastin Azeem Stat Prothrombin Time INR Stat Troponin & CK Cardiac Panel Stat Discontinued Medications Meclizine HCl (Meclizine Hcl 12.5 Mg Tablet) 25 mg PO NOW ONE Stop: 11/28/24 19:19 Last Admin: 11/28/24 19:24 Dose: 25 mg Documented By: Ondansetron HCl (Ondansetron 4 Mg/2 Ml Inj) 4 mg IV NOW ONE Stop: 11/28/24 19:19 Last Admin: 11/28/24 19:21 Dose: 4 mg Documented By: Ondansetron HCl (Ondansetron 4 Mg Odt Prepack) 1 bottle MISC NOW ONE Stop: 11/28/24 19:58 Vital Signs Vital signs: Vital Signs - 8 hr 11/28/24 18:49 11/28/24 18:51 11/28/24 18:51 Pulse Rate 65 63 Respiratory Rate 47 H Blood Pressure 133/78 Pulse Oximetry 98 98 11/28/24 19:00 11/28/24 19:00 Pulse Rate 62 Respiratory Rate 13 Blood Pressure 129/73 Pulse Oximetry 99 MDM - Dizziness Lab Data 11/28/24 17:03 11/28/24 17:03 Labs: Lab Results 11/28/24 Range/Units 17:03 WBC 8.7 (4.5-11.0) X10^3/uL RBC 4.97 (4.0-5.2) X10^6/uL Hgb 15.6 (12.0-16.0) g/dL Hct 46.2 H (36-46) % MCV 92.9 (80-100) fL MCH 31.3 (26-34) PG MCHC 33.7 (30-36) % RDW 12.9 (11.6-14.8) % Plt Count 304 (150-400) X10^3/uL Neut % (Auto) 71.9 (50-75) % Lymph % (Auto) 21.5 L (25-40) % Anderson % (Auto) 4.5 (3-14) % Eos % (Auto) 1.3 L (2-4) % Baso % (Auto) 0.8 (0-2) % Neut # (Auto) 6200 (9555-4103) /uL Lymph # (Auto) 1900 (3455-4980) /uL Anderson # (Auto) 400 (0-900) /uL Eos # (Auto) 100 (0-450) /uL Baso # (Auto) 100 (0-100) /uL PT 10.8 (9.4-12.5) SECONDS INR 1.0 (0.9-1.3) APTT 31 (25.1-36.5) SECONDS Sodium 137 (137-145) mmol/L Potassium 4.6 (3.4-5.1) mmol/L Chloride 105 (98-107) mmol/L Carbon Dioxide 25 (22-32) mmol/L BUN 13 (7-17) mg/dL Creatinine 0.84 (0.52-1.04) mg/dL Estimated GFR > 60 (>60) mL/min BUN/Creatinine Ratio 15.5 (6-22) Glucose 111 H (80-110) mg/dL Calcium 9.1 (8.4-10.2) mg/dL Magnesium 2.1 (1.6-2.3) mg/dL Total Bilirubin 1.6 H (0.2-1.3) mg/dL AST 50 H (14-36) IU/L ALT 38 H (<35) IU/L Alkaline Phosphatase 49 (38-126) U/L Total Creatine Kinase 110 (30-135) U/L Troponin I 0.015 (0.01-0.034) ng/mL NT-Pro-B Natriuret Pep 132 H (<125) pg/mL Total Protein 7.9 (6.3-8.2) g/dL Albumin 4.5 (3.5-5.0) g/dL Globulin 3.4 (1.7-4.1) g/dL Albumin/Globulin Ratio 1.3 (1.0-2.8) Lipase 58 (23-300) U/L Imaging Data Chest x-ray: Radiologist's Impression: PROCEDURE: XR CHEST 1V INDICATIONS: chest pain TECHNIQUE: One view of the chest was acquired. COMPARISON: None. FINDINGS: Surgical changes and devices: None. Lungs and pleura: Lungs are clear. No pleural effusions or pneumothorax. Mediastinum: Mediastinal contours appear normal. Heart size is normal. Bones and chest wall: No suspicious bony lesions. Overlying soft tissues appear unremarkable. IMPRESSION: No acute cardiopulmonary abnormality is seen. Dictated by: Willy Rao M.D. on 11/28/2024 at 18:54 ECG Data Attestation: I personally reviewed and interpreted this ECG as follows: Prior ECG tracings: available for review Interpretation: Sinus rhythm rate 60 FL interval 124 QRS [address] changes MDM Narrative Medical decision making narrative: [facility] CC: Dizziness Complicating co-morbidities: Tremor hyperlipidemia hypertension Data collected from: Medical records reviewed: Previous ED visit 10/03/2024 where she had full complete workup including MRI echocardiogram diagnosed with TG Differential considered: Posterior CVA benign paroxysmal positional vertigo Meniere's disease Exam documented above, pertinent findings include: No nystagmus no focal deficits Lab Test results independently reviewed as above. Pertinent findings: No leukocytosis no anemia No CHIKA no electrolyte abnormalities Bilirubin found to be 1.6 AST 50 ALT 38 bilirubin and AST are slightly more elevated than they were previously Troponin 0.015 BNP 132 Independently reviewed EKG as above no ischemia Treatments: Zofran meclizine Ruthann maneuver Re-evaluations: After Ruthann maneuver patient feeling really nauseous but no longer dizzy Discussion: Patient is 64-year-old female presenting today with sudden onset of dizziness. It is definitely worse with position and turning head. I do not appreciate any nystagmus. Symptoms are most consistent with a benign positional paroxysmal vertigo. She had full workup about 6 weeks ago. Blood work overall reassuring mild elevation of liver enzymes and bilirubin without any sort of abdominal pain. Ruthann maneuver done in the ED patient reports feeling nauseous afterwards but possibly improvement in her dizziness. At this time she feels comfortable going home. Discharge Plan Departure Patient Disposition: Home Clinical Impression: Vertigo Instructions: DI for Vertigo Activity Restrictions/Additional Instructions: *You have been diagnosed with vertigo *What to do: At this time I hope this resolves for you in the you start feeling better soon. May increase diet and fluids as tolerated *Continue to take medications as directed Zofran 4 mg every 8 hours if needed for nausea or vomiting Meclizine 25 mg every 8 hours if needed for dizziness *Follow up with your primary care provider in 2-3 days or call [phone] *Return to ER if you should have versus dizzy just persistent vomiting weakness or any new, worsening or concerning symptoms Prescriptions: New meclizine 25 mg tablet 25 mg PO TID PRN (Reason: dizziness) Qty: 10 0RF ondansetron 4 mg tablet,disintegrating 4 mg PO Q8H PRN (Reason: nausea and vomiting) Qty: 10 0RF No Action cholecalciferol (vitamin D3) [Vitamin D3] 2,000 UNIT tablet 2,000 unit PO QDAY Qty: 0 atorvastatin [Lipitor] 20 MG tablet 20 mg PO HS Qty: 90 3RF propranolol 80 mg tablet 80 mg PO BID Qty: 90 0RF Rx Instructions: Pt yet to est care with a new PCP. #90 given. Please call clinic to schedule appt... 12/26/18 lisinopril 20 mg tablet 20 mg PO DAILY hydrochlorothiazide 12.5 mg tablet 12.5 mg PO DAILY aspirin 81 mg Tablet,Delayed Release (Dr/Ec) 81 mg PO DAILY Referrals: Kyara Guillory DO [Primary Care Provider] - Stand Alone Forms: Patient Portal/API/Survey
--- NOTE | 2024-11-28 19:17 | PC.NURSE ---
Patient is not experiencing chest pain
[2024-11-28] MEDS: ONDANSETRON 4 MG/2 ML INJ IV (19:21)
[2024-11-28] MEDS: MECLIZINE HCL 12.5 MG TABLET 25 MG PO (19:24)
== END 2024-11-28 20:00 | disposition home or self-care (01) ==
PROVIDERS: Emergency Medicine; Emergency Provider Emergency Medicine; PCP Student in an Organized Health Care Education/Training Program
DX: R42 Dizziness and giddiness (principal); I10 Essential (primary) hypertension; R07.9 Chest pain, unspecified
CPT/HCPCS: 36415; 71045; 80053; 82550; 83690; 83735; 83880; 84484; 85025; 85610; 85730; 93005; 96374; 99284; J2405